=== PATIENT | female | born 1960 | race Caucasian/White ===

== ENCOUNTER 2017-03-23 14:38 | Observation (INO) | payer OTHER ==
[2017-03-23] MEDS ORDERED: ONDANSETRON HCL/PF 4 MG/ 2ML VIAL IVP ONE (15:03)
[2017-03-23] MEDS ORDERED: 0.9 % SODIUM CHLORIDE 1,000 ML IV ONE (15:12)
[2017-03-23 15:19] LABS: BASOPHILS % 0.2 (0.0-1.5); EOSINOPHILS % 0.1 % (0.0-6.8); MEAN CORPUSCULAR HEMOGLOBIN 30.9 pg (28.0-34.0); MEAN CORPUSCULAR VOLUME 92.9 fl (80.0-100.0); NEUTROPHILS # 3.9 # k/uL (1.4-7.7)
--- NOTE | 2017-03-23 15:23 | ED Physician Documentation ---
Syncope/Near Syncope - HISTORIAN Historian: patient, other - HPI Chief Complaint: Syncope Witnessed: Yes Witnessed By: family Position at Time of Episode: other (unkown) Symptoms Prior to Episode: light-headed Character of Events(s): collapsed Symptoms after Event: denies: incontinent of urine, incontinent of stool, breathing shallow Location of Injury: head (left posterior occiput) Associated Symptoms: weakness (generalized) Further Comments: yes - ROS CONST: other (has been dieting again. ). denies: recent illness GI/: denies: diarrhea, black stools, problems urinating LNMP: denies: MS/SKIN/LYMPH: joint pain (at baseline) - PAST HX Cardiac Disease: none Other History: Other (constipation, anxiety/panic attacks, chronic back pain, hypercholesterolemia, allergic rhinnitis) Surgeries/Procedures: other (back surgery, nerve stimulator implant) Allergies/Adverse Reactions: Allergies Allergy/AdvReac Type Severity Reaction Status Date / Time morphine Allergy Verified 03/23/17 15:01 Sulfa (Sulfonamide Allergy Verified 03/23/17 15:01 Antibiotics) Home Medications: Ambulatory Orders Medication Instructions Recorded Albuterol Sulfate [Proair HFA] 2 inh IH Q4-6 PRN 03/23/17 Bisacodyl [Women's Laxative] 5 mg PO PRN PRN 03/23/17 Butalb/Acetaminophen/Caffeine 1 each PO Q4H PRN 03/23/17 [Fioricet 50-300-40 mg Capsule] Cetirizine HCl [Zyrtec] 10 mg PO HS 03/23/17 Docusate Sodium [Colace] 100 mg PO PRN PRN 03/23/17 Ergocalciferol (Vitamin D2) 800 unit PO DAILY 03/23/17 [Vitamin D] Gabapentin [Neurontin] 600 mg PO QID 03/23/17 Lactulose [Enulose] 10 gm PO DAILY PRN 03/23/17 Lovastatin [Lovastatin] 40 mg PO DAILY 03/23/17 Meloxicam [Mobic] 15 mg PO DAILY 03/23/17 Tizanidine HCl [Zanaflex] 4 mg PO BID PRN 03/23/17 Triamcinolone Acetonide [Nasacort] 2 inh NS DAILY 03/23/17 Venlafaxine HCl [Effexor Xr] 150 mg PO DAILY 03/23/17 - SOCIAL HX Smoking History: non-smoker Alcohol Use: none Drug Use: none - FAMILY HX Family History: none - VITAL SIGNS Vital Signs: Vital Signs Temp Pulse Resp BP Pulse Ox 96.1 F L 72 17 133/67 99 03/23/17 14:40 03/23/17 17:51 03/23/17 17:51 03/23/17 17:51 03/23/17 17:51 - REVIEWED ASSESSMENTS Nursing Assessment Reviewed: Yes Vitals Reviewed: Yes Progress - Progress Progress: 1548 Patient seems to be more alert, Glascow comma scale still 15/15. Still is lethargic some. Answering questions appropriately. 16:56 Patient remains lethargic, is arousable and answers questions appropriately. Labs and CT scan virtually normal. - EKG/XRAY/CT EKG: NSR, no ST T wave changes Comments: noisy baseline due to nerve stimulator ED Results Lab/Radiology - Lab Results Lab Results: Lab Results 03/23/17 03/23/17 15:06 15:06 WBC 5.80 K/ul K/ul (4.00-12.00) RBC 4.48 M/ul M/ul (3.90-5.20) Hgb 13.8 g/dL g/dL (12.0-16.0) Hct 41.6 % % (34.5-46.5) MCV 92.9 fl fl (80.0-100.0) MCH 30.9 pg pg (28.0-34.0) MCHC 33.3 g/dL g/dL (30.0-36.0) RDW 12.7 % % (11.3-14.3) Plt Count 309 K/mm3 K/mm3 (130-400) Neut % (Auto) 67.2 % % (39.0-79.0) Lymph % (Auto) 27.1 % % (16.0-50.0) Kern % (Auto) 4.0 % % (0.0-11.0) Eos % (Auto) 0.1 % % (0.0-6.8) Baso % (Auto) 0.2 (0.0-1.5) Neut # 3.9 # k/uL # k/uL (1.4-7.7) Lymph # 1.6 # k/uL # k/uL (0.6-4.0) Kern # 0.2 # k/uL # k/uL (0.0-0.9) Eos # 0.0 # k/uL # k/uL (0.0-0.6) Baso # 0.0 # k/uL # k/uL (0.0-0.5) Reactive Lymphs % 1.4 % % (0.0-5.0) Reactive Lymphs # 0.1 # k/uL # k/uL (0.0-0.8) Sodium 143 mmol/L mmol/L (136-145) Potassium 4.1 mmol/L mmol/L (3.5-5.0) Chloride 102 mmol/L mmol/L (98-110) Carbon Dioxide 35 mmol/L H mmol/L (20-32) BUN 25 mg/dL mg/dL (10-26) Creatinine 0.8 mg/dL mg/dL (0.4-1.5) Estimated Creat Clear 85 Est GFR ( Amer) > 60 (60 - ) Est GFR (Non-Af Amer) > 60 (60 - ) Glucose 100 mg/dL H mg/dL (70-99) Calcium 10.6 mg/dL H mg/dL (8.5-10.5) Total Bilirubin 0.6 mg/dL mg/dL (0.2-1.2) AST 25 U/L U/L (0-41) ALT 40 U/L U/L (0-45) Alkaline Phosphatase 103 U/L U/L (46-116) Total Protein 7.5 g/dL g/dL (6.0-8.5) Albumin 4.6 g/dL g/dL (3.0-5.5) - Radiology Radiology Impressions: Report Submission Date: Mar 23, 2017 4:10:38 PM CDT Patient Study Name: RONNI CAM Date: Mar 23, 2017 3:25:53 PM CDT Modality Type: CT\SR Gender: F Description: CT BRAIN W/O CONTRAST : 60 Institution: [facility] Physician: DIANE KENNEY CT brain noncontrast Date of study: March 2017 CLINICAL HISTORY: 56/F PATIENT WITH TWO KNOWN EPISODES OF SYNCOPE IN THE LAST 2 HRS; PATIENT IS ONLY MINIMALLY COMMUNICATIVE BUT COMPLAINS OF NAUSEA, DIZZINESS, AND PAIN IN CRANIAL REGION (ANTERIOR AND POSTERIOR BOTH); PATIENT HAS SWELLING ON OCCIPITAL PORTION OF SKULL; NO KNOWN SURGERIES (Hx) / SYNCOPE ( DICOM Hx) TECHNIQUE: 5 mm contiguous axial images of the brain, noncontrast. FINDINGS: There is no evidence of intracranial mass effect, hemorrhage, or acute hydrocephalus. The lateral ventricles are symmetrical and the 4th ventricle is midline without shift. No acute brain parenchymal changes or extra-axial fluid collections are identified. The posterior fossa contents are within normal limits. The calvarium is intact. The visualized sinuses and mastoid air cells are clear. IMPRESSION: No acute intracranial process. Electronically signed on Mar 23, 2017 4:10:38 PM CDT by: Issac Covarrubias - Orders Orders: ED Orders Category Date Time Status CT BRAIN W/O CONTRAST Stat Exams 03/23/17 Taken CBC/PLATELET/DIFF Routine Lab 03/23/17 15:06 Completed CMP Routine Lab 03/23/17 15:06 Completed URINALYSIS Routine Lab 03/23/17 16:52 Ordered 0.9 % Sodium Chloride [Normal Saline] 1,000 ml Med 03/23/17 15:30 Discontinued IV .Q1H 0.9 % Sodium Chloride [Normal Saline] 1,000 ml Med 03/23/17 16:14 Ordered IV .Q1H 0.9 % Sodium Chloride [Normal Saline] 1,000 ml Med 03/23/17 15:12 Discontinued IV .STK-MED Chem Sticks Med 03/23/17 15:02 Discontinued 1 each MC NOW ONE Ondansetron HCl/Pf [Zofran 4 mg/2 ml] Med 03/23/17 15:03 Discontinued 4 mg IVP NOW ONE EKG WITH COMPARISON Routine Ther 03/23/17 15:04 Ordered Syncope Physical Exam - Physical Exam General Appearance: mild distress, lethargic EENT: nml eye inspection, PERRL. No: pupils unequal, abnml fundi, papilledema, tongue abrasion Neck/Back: neck supple, non-tender, no carotid bruit. No: cerv. lymphadenopathy , neck tenderness Respiratory: no resp distress, chest non-tender, breath sounds normal. No: wheezes, rales, rhonchi CVS: reg rate & rhythm, heart sounds normal, equal pulses, no murmur, no gallop Abdomen: non-tender, no organomegaly, nml bowel sounds, no distention Skin: warm/dry, normal color - Neuro/Psych Higher Functions: oriented x3, no evidence of acute CVA, mood/affect nml, eyes open, slow to respond, other (glascow comma scale 15/15) Cranial Nerves: nml as tested Cerebellar: nml as tested Sensorimotor: nml motor response, nml sensory response, nml reflexes Discharge Clincal Impression: Syncope, Lethargy Home Medications: Ambulatory Orders Albuterol Sulfate [Proair HFA] 2 inh IH Q4-6 PRN 03/23/17 Bisacodyl [Women's Laxative] 5 mg PO PRN PRN 03/23/17 Butalb/Acetaminophen/Caffeine [Fioricet 50-300-40 mg Capsule] 1 each PO Q4H PRN 03/23/17 Cetirizine HCl [Zyrtec] 10 mg PO HS 03/23/17 Docusate Sodium [Colace] 100 mg PO PRN PRN 03/23/17 Ergocalciferol (Vitamin D2) [Vitamin D] 800 unit PO DAILY 03/23/17 Gabapentin [Neurontin] 600 mg PO QID 03/23/17 Lactulose [Enulose] 10 gm PO DAILY PRN 03/23/17 Lovastatin [Lovastatin] 40 mg PO DAILY 03/23/17 Meloxicam [Mobic] 15 mg PO DAILY 03/23/17 Tizanidine HCl [Zanaflex] 4 mg PO BID PRN 03/23/17 Triamcinolone Acetonide [Nasacort] 2 inh NS DAILY 03/23/17 Venlafaxine HCl [Effexor Xr] 150 mg PO DAILY 03/23/17 Condition: Stable Disposition: ADMITTED INPATIENT Palliative/Comfort Care: Palliative Care Decision to Admit: [id number] Date of Decison to Admit: 03/23/17 Decision Time: 17:00
[2017-03-23] MEDS ORDERED: 0.9 % SODIUM CHLORIDE 1,000 ML IV SCH ×2 (15:30→16:14)
[2017-03-23 15:32] LABS: eGFR (African) > 60; eGFR (Non-African) > 60
[2017-03-23] MEDS ORDERED: ONDANSETRON HCL/PF 4 MG/ 2ML VIAL IVP PRN (17:28)
[2017-03-23] MEDS ORDERED: GABAPENTIN 300 MG CAPSULE ONE (18:23)
[2017-03-23] MEDS ORDERED: CIPROFLOXACIN HCL 500 MG TABLET PO ONE (18:23)
[2017-03-23 18:39] VITALS: BMI 21.4
--- NOTE | 2017-03-23 18:53 | Diagnostic Imaging Report ---
DIANE KENNEY~ [id number] [address] [place], [place]. [address] ~ ~ ~ ~ Report Submission Date: Mar 23, 2017 4:10:38 PM CDT Patient ~ Study Name: RONNI CAM ~ Date: Mar 23, 2017 3:25:53 PM CDT ~ Modality Type: CT\SR Gender: F ~ Description: CT BRAIN W/O CONTRAST : 60 ~ Institution: [facility] Physician: DIANE KENNEY ~ ~ ~ ~ CT brain noncontrast Date of study: March 2017 CLINICAL HISTORY:~ 56/F PATIENT WITH TWO KNOWN EPISODES OF SYNCOPE IN THE LAST 2 HRS; PATIENT IS ONLY MINIMALLY COMMUNICATIVE BUT COMPLAINS OF NAUSEA, DIZZINESS, AND PAIN IN CRANIAL REGION (ANTERIOR AND POSTERIOR BOTH); PATIENT HAS SWELLING ON OCCIPITAL PORTION OF SKULL; NO KNOWN SURGERIES (Hx) / SYNCOPE ( DICOM Hx) TECHNIQUE: 5 mm contiguous axial images of the brain, noncontrast. FINDINGS: There is no evidence of intracranial mass effect, hemorrhage, or acute hydrocephalus. The lateral ventricles are symmetrical and the 4th ventricle is midline without shift. No acute brain parenchymal changes or extra-axial fluid collections are identified. The posterior fossa contents are within normal limits. The calvarium is intact. The visualized sinuses and mastoid air cells are clear. IMPRESSION: No acute intracranial process. ~ Electronically signed on Mar 23, 2017 4:10:38 PM CDT by: Issac TORRES
[2017-03-23] MEDS ORDERED: ACETAMINOPHEN 500 MG TABLET ONE (21:21)
[2017-03-23] MEDS ORDERED: VENLAFAXINE HCL 37.5 MG CAP.ER.24H PO ONE (21:21)
[2017-03-23] MEDS: CIPROFLOXACIN HCL 500 MG TABLET PO SCH (21:27)
[2017-03-23] MEDS: ACETAMINOPHEN 500 MG TABLET PO PRN (21:27)
[2017-03-23] MEDS: GABAPENTIN 300 MG CAPSULE PO SCH (21:27)
[2017-03-23] MEDS ORDERED: VENLAFAXINE HCL 37.5 MG CAP.ER.24H PO SCH (22:00)
[2017-03-24] MEDS ORDERED: ACETAMINOPHEN 500 MG TABLET ONE ×2 (03:33→09:54)
[2017-03-24] MEDS: ACETAMINOPHEN 500 MG TABLET PO PRN ×2 (03:34→09:56)
[2017-03-24] MEDS ORDERED: CIPROFLOXACIN HCL 500 MG TABLET PO ONE (04:01)
[2017-03-24] MEDS ORDERED: GABAPENTIN 300 MG CAPSULE ONE ×2 (04:01→13:00)
[2017-03-24 05:29] LABS: APPEARANCE,URINE CLOUDY (CLEAR); COLOR,URINE YELLOW (YELLOW); OCCULT BLOOD,URINE 1+ (NEGATIVE); PH URINE 7.5 (5.0 - 8.0); UROBILINOGEN URINE 0.2 Eu (0.2-1.0)
[2017-03-24 06:48] LABS: BASOPHILS % 0.2 (0.0-1.5); EOSINOPHILS % 0.3 % (0.0-6.8); MEAN CORPUSCULAR HEMOGLOBIN 30.4 pg (28.0-34.0); MEAN CORPUSCULAR VOLUME 95.5 fl (80.0-100.0); MONOCYTES % 4.7 % (0.0-11.0); NEUTROPHILS # 2.3 # k/uL (1.4-7.7)
[2017-03-24 07:05] LABS: eGFR (African) > 60; eGFR (Non-African) > 60
[2017-03-24] MEDS: CIPROFLOXACIN HCL 500 MG TABLET PO SCH (09:49)
[2017-03-24] MEDS: GABAPENTIN 300 MG CAPSULE PO SCH ×2 (09:50→13:05)
[2017-03-24] MEDS ORDERED: ONDANSETRON HCL/PF 4 MG/ 2ML VIAL ONE (10:48)
[2017-03-24] MEDS ORDERED: SALINE FLUSH 10 ML DISP.SYRIN IVF ONE (10:48)
[2017-03-24 10:53] VITALS: BP 120/61
[2017-03-24] MEDS ORDERED: fentaNYL CITRATE/PF 100 MCG/ 2ML AMP IVP ONE (12:40)
== END 2017-03-24 13:45 | disposition home or self-care (01) ==
LOC: ED 14:38 → SOUTH 17:18
PROVIDERS: ADMIT Physician Assistant; ATTEND Physician Assistant
DX: R55 Syncope and collapse (principal)
CPT/HCPCS: 36415; 70450; 80053; 81002; 85025; 87086; 87186; 93005; G0378; J2405; J7030; 96361; 96374; 96376; 99283; 99284; S1016